=== PATIENT | female | born 1955 ===

== ENCOUNTER 2017-08-15 13:21 | Emergency (ER) | payer MEDICARE, MEDICAID ==
[2017-08-15 13:22] VITALS: BMI 33.6
[2017-08-15 13:34] VITALS: BP 168/72; PULSE 70; RESP 18; TEMP 97; O2SAT 99
--- NOTE | 2017-08-15 14:58 | ED PDOC ---
HPI: General Adult Time Seen by Provider: 08/15/17 13:35 Chief Complaint (Nursing): Hip Pain Chief Complaint (Provider): Rigth lateral thigh pain x 3 days History Per: Patient History/Exam Limitations: no limitations Onset/Duration Of Symptoms: Days Have you had recent travel within the past 21 days to any of the following countries: [place], [place], [place] or [place]?: No Current Symptoms Are (Timing): Still Present Location Of Discomfort (Image): 1 - Pain Additional Complaint(s): Pt reports right thigh pain for 3-4 days. PT states she is unable to sleep. Initially pt reports taking motrin and tylenol at home. Pt than asked about Rx for percocet which she than reports taking for low back pain. No trauma. Pt state sshe is only worried about blood clots. Past Medical History Reviewed: Historical Data, Nursing Documentation, Vital Signs Vital Signs: Last Vital Signs Temp 97 F L 08/15/17 13:32 Pulse 70 08/15/17 13:32 Resp 18 08/15/17 13:32 BP 168/72 H 08/15/17 13:32 Pulse Ox 99 08/15/17 13:32 - Medical History PMH: Alzheimer's Disease, Anxiety, Asthma, CVA, Emphysema, Fractures (FEET/TOES: RIGHT ARM), Gastritis, HTN, Hypercholesterolemia, Chronic Kidney Disease, Seizures (MED. SIDE EFFECT 1 YR. AGO), TIA (recent admission 06/05/2014) - Surgical History Surgical History: Appendectomy, Tonsillectomy - Family History Family History: States: Unknown Family Hx - Home Medications Home Medications: Ambulatory Orders Medication Instructions Recorded Alprazolam 0.5 mg PO BID 01/17/15 Aspirin/Dipyridamole [Aggrenox 25 1 cer PO BID 01/17/15 mg-200 mg] Fluticasone/Salmeterol 100/50 2 puff IH DAILY 01/17/15 [Advair Diskus 100/50] Rivastigmine 9.5 mg/24 hr [Exelon 13.3 mg TD DAILY 01/17/15 9.5 mg/24 hr Patch] Simvastatin 20 mg PO HS 01/17/15 - Allergies Allergies/Adverse Reactions: Allergies Allergy/AdvReac Type Severity Reaction Status Date / Time No Known Allergies Allergy Verified 01/17/15 02:37 Review of Systems ROS Statement: Except As Marked, All Systems Reviewed And Found Negative Constitutional: Negative for: Fever, Chills Musculoskeletal: Positive for: Leg Pain Physical Exam - Reviewed Nursing Documentation Reviewed: Yes Vital Signs Reviewed: Yes - Physical Exam Appears: Positive for: Well, Non-toxic, No Acute Distress Head Exam: Positive for: ATRAUMATIC, NORMAL INSPECTION, NORMOCEPHALIC Skin: Positive for: Normal Color, Warm, DRY Eye Exam: Positive for: Normal appearance ENT: Positive for: Normal ENT Inspection Neck: Positive for: Normal, Painless ROM Cardiovascular/Chest: Positive for: Regular Rate, Rhythm Respiratory: Positive for: CNT, Normal Breath Sounds Back: Positive for: Normal Inspection Extremity: Positive for: Normal ROM, Other (Varicose veins ). Negative for: Deformity, Swelling Neurologic/Psych: Positive for: Alert, Oriented - ECG O2 Sat by Pulse Oximetry: 99 Medical Decision Making Medical Decision Making: US (-) for DVT Disposition - Clinical Impression Clinical Impression: Right thigh pain - Patient ED Disposition Is Patient to be Admitted: No Counseled Patient/Family Regarding: Diagnosis, Need For Followup - Disposition Disposition: Routine/Home Disposition Time: 14:51 Condition: GOOD Instructions: Musculoskeletal Pain (ED)
--- NOTE | 2017-08-15 15:07 | US ---
PROCEDURE: Duplex Doppler ultrasound of right lower extremity HISTORY: thigh pain COMPARISON: None available TECHNIQUE: Examination of the right common femoral vein, superficial femoral vein, popliteal vein and posterior tibial veins was performed. Assessment included compressibility, respiratory phasicity and augmentation. FINDINGS: No evidence of deep venous thrombosis in the right lower extremity. IMPRESSION: No evidence of right lower extremity deep venous thrombosis.
== END 2017-08-15 14:58 | disposition home or self-care (01) ==
LOC: H.ER 13:21
DX: M79.651 Pain in right thigh (principal); E78.00 Pure hypercholesterolemia, unspecified; F02.80 Dementia in other diseases classified elsewhere, unspecified severity, without behavioral disturbance, psychotic disturbance, mood disturbance, and anxiety; F41.9 Anxiety disorder, unspecified; G30.9 Alzheimer's disease, unspecified; I12.9 Hypertensive chronic kidney disease with stage 1 through stage 4 chronic kidney disease, or unspecified chronic kidney disease; J43.9 Emphysema, unspecified; Z79.82 Long term (current) use of aspirin; Z86.73 Personal history of transient ischemic attack (TIA), and cerebral infarction without residual deficits; J45.909 Unspecified asthma, uncomplicated